=== PATIENT | female | born 1935 | race Caucasian/White ===

== ENCOUNTER 2016-12-08 07:19 | Day surgery (SDC) | payer OTHER ==
[2016-12-06 15:48] VITALS: BMI 31.4
[2016-12-08] MEDS ORDERED: PROPOFOL 20 ML ONE ×2 (07:21)
[2016-12-08] MEDS ORDERED: LIDOCAINE HCL/PF 2% SDV 5ML VIAL ONE (07:22)
[2016-12-08 10:27] VITALS: BP 132/81; PULSE 66
[2016-12-08 10:30] VITALS: TEMP 97.9
== END 2016-12-08 09:45 | disposition home or self-care (01) ==
LOC: FASU-ENDO 07:19
PROVIDERS: ATTEND Internal Medicine Gastroenterology
PROC: 0DJD8ZZ Inspection of Lower Intestinal Tract, Via Natural or Artificial Opening Endoscopic (ICD-10-PCS; principal; 2016-12-08 08:39)
DX: Z86.010 Personal history of colon polyps (principal); Z83.71 Family history of colonic polyps

== ENCOUNTER 2017-01-28 10:58 | Day surgery (SDC) | payer OTHER ==
[2017-01-27 10:43] VITALS: BMI 30.7
[~2017-01-28 10:58] MED LIST: ceFAZolin SODIUM 1 GM VIAL IVPB ONE
[2017-01-28] MEDS ORDERED: PROPOFOL 20 ML ONE ×2 (14:04)
[2017-01-28] MEDS ORDERED: MIDAZOLAM HCL 2 MG/2 ML SINGLE DOSE VIAL ONE (14:04)
[2017-01-28] MEDS ORDERED: ROCURONIUM BROMIDE 50 MG/5 ML VIAL ONE (14:04)
[2017-01-28] MEDS ORDERED: ceFAZolin SODIUM 1 GM VIAL ONE (14:06)
[2017-01-28] MEDS ORDERED: KETOROLAC TROMETHAMINE 30 MG/1 ML VIAL ONE (14:06)
[2017-01-28] MEDS ORDERED: DEXAMETHASONE SOD PHOSPHATE 4 MG/1 ML VIAL ONE (14:06)
[2017-01-28] MEDS ORDERED: ONDANSETRON 4 MG/2 ML VIAL IVPUSH PRN (14:15)
[2017-01-28] MEDS ORDERED: oxyCODONE HCL 5 MG TABLET PO PRN (14:15)
[2017-01-28] MEDS ORDERED: PROMETHAZINE HCL 25 MG/1 ML VIAL IVPUSH PRN (14:15)
[2017-01-28] MEDS ORDERED: ePHEDrine SULFATE 50 MG/1 ML AMPULE ONE (14:35)
[2017-01-28] MEDS ORDERED: ceFAZolin SODIUM 1 GM VIAL IVPB ONE (14:35)
[2017-01-28] MEDS ORDERED: NEOSTIGMINE METHYLSULFATE 0.5 MG/ML - 10 ML MDV ONE (15:13)
--- NOTE | 2017-01-28 15:30 | HP ---
History & Physical Update - History History: No Change - Physical Physical: No Change - Assessment Assessment: No Change - Plan Plan: No Change
--- NOTE | 2017-01-28 15:41 | OP ---
Operative Note - Note: Operative Date: 01/28/17 Pre-Operative Diagnosis: Incarcerated left inguinal hernia. Operation: Repair of incarcerated left inguinal hernia with plug and mesh. Findings: Large indirect defect of left groin. Surgeon: Talisha Chaudhari Anesthesia: General Specimens Removed: Hernial sac, and adipose tissue. Estimated Blood Loss (mls): 5 Operative Report Dictated: Yes
--- NOTE | 2017-01-28 15:49 | SURG ---
Surgery Uke Operator Note Uke Operator: Mary Pelayo PA-C Date of Service: 01/28/17 Diagnosis: Incarcerated left inguinal hernia. Procedure: Repair of incarcerated left inguinal hernia with plug and mesh. I was present for the entirety of the operative procedure. For further detail, please refer to operative report. Visit type - Case Type Case Type: Scheduled Admission - Emergency Emergency Visit: No - New patient This patient is new to me today: Yes Date on this admission: 01/28/17 - Critical Care Critical Care patient: No
[2017-01-28 17:13] VITALS: TEMP 98
[2017-01-28] MEDS ORDERED: ONDANSETRON 4 MG/2 ML VIAL ONE (17:45)
[2017-01-28 19:38] VITALS: BP 140/67; PULSE 65
--- NOTE | 2017-01-29 09:52 | OP ---
DATE OF OPERATION: 01/28/2017 PREOPERATIVE DIAGNOSIS: Incarcerated left inguinal hernia. POSTOPERATIVE DIAGNOSIS: Incarcerated left inguinal hernia. PROCEDURE PERFORMED: Repair of incarcerated left inguinal hernia with plug and mesh. SURGEON: Breezy Chaudhari MD TRAIN OPERATOR: PRAMOD Johnson ANESTHESIA: General anesthesia. INDICATIONS: This 81-year-old woman had a large swelling in the left groin, which was causing pain and was not reducible. The patient was brought in for repair of the hernia. Consent was obtained. The risks, benefits and complications were discussed with the patient. DESCRIPTION OF PROCEDURE: The patient was given 1 g of Ancef. General anesthesia was administered. The left groin was painted and draped. A skin incision was made in the left groin, which was deepened through the skin and subcutaneous tissue and Krish fascia. The external oblique aponeurosis was then incised along the direction of its fibers. There was a large hernia sac going down along the inguinal canal towards the labia. This was coming out lateral to the inferior epigastric vessels, suggesting to be an indirect hernia. The sac was then mobilized, along with the properitoneal fat, all the way towards the internal ring. The sac was then opened. There was no bowel content within the hernia at the time of the surgery. The sac was transfixed with 2-0 Vicryl sutures at the level of the internal ring. The rest of the sac beyond the suture was excised and sent to Pathology. There was also preperitoneal fat alongside the sac, which was excised and sent to Pathology. The sac was then from the posterior wall of the inguinal canal circumferentially and pushed back cephalad. A large plug was then inserted through the internal ring, and placed behind the transversus abdominis muscle and fashion. This was anchored with 2-0 Prolene sutures, which were passed through the internal oblique and transversus abdominis muscle, brought through the ring, caught the outer leaf of the mesh, and was reintroduced through the internal ring and brought out through the transversalis fascia, transversus abdominis muscle and internal oblique muscle. Two short sutures were obtained, one above and lateral to the internal ring and the other medial to the internal ring. The plug was then inserted through the internal ring and placed behind the abdominal wall. Large mesh was then interposed between the defect from the shelving edge of the inguinal ligament and internal oblique muscle. This was anchored at the level of the pubic tubercle with 2-0 Prolene sutures. The inferior leaf of the mesh was placed over the shelving edge of the inguinal ligament and anchored with the VersaTack tacking device. The 2-0 Prolene suture holding the plug behind the abdominal wall was brought through the mesh and was then anchored and a knot was fashioned, thus sandwiching the internal oblique muscle and transversus abdominis muscle and fascia between the plug and the mesh. The lateral Prolene suture was brought through both leaves of the mesh, which were placed over each, and a knot was fashioned. Thus the repair was adequately performed. The wound was irrigated. Hemostasis was satisfactory. The external oblique aponeurosis was approximated with continuous 3-0 Vicryl sutures. Krish fascia was approximated with buried interrupted 3-0 Vicryl sutures. The subcutaneous fat was approximated again with buried interrupted 3-0 Vicryl sutures. The skin was approximated with continuous 4-0 Monocryl sutures in a running subcuticular fashion. Marcaine 0.5% was injected into the wound. Dermabond was applied across the skin edges. The patient tolerated the procedure well. She was extubated and sent to the recovery room in satisfactory and stable condition. Renee [id number] MTDD
--- NOTE | 2017-02-02 13:31 | PATH ---
Surgical Pathology Report Patient Name: ARIS HAMMONDS [facility]. Rec. #: [id number] /Age/Gender: 1935 (Age: 81) / F Account: [id number] Location: [facility] SURGICAL Taken: 01/28/2017 Received: 02/01/2017 Reported: 02/02/2017 Physicians: Breezy Chaudhari M.D. Specimen(s) Received A: PREPERITONEAL FAT B: LEFT HERNIA SAC Clinical History Open incarcerated inguinal hernia Final Diagnosis A. PERITONEAL FAT: BENIGN FATTY TISSUE. B. HERNIA SAC, LEFT, INCARCERATED INGUINAL HERNIA REPAIR: BENIGN FIBROMEMBRANOUS AND FATTY TISSUE AND WITH HEMORRHAGE AND VASCULAR CONGESTION CONSISTENT WITH HERNIA SAC. Electronically Signed Bruno Rowell M.D. Gross Description A. Received in formalin labeled "peritoneal fat" is a 5.4 x 1.3 is 0.7 cm irregular portion of yellow, lobulated adipose tissue. The specimen is sectioned and entirely submitted in 2 cassettes. B. Received in formalin labeled "left hernia sac" is a 7.0 x 5.3 x 2.5 cm aggregate multiple irregular, unoriented portions of sevilla-julian fibromembranous tissue with attached yellow, lobulated adipose tissue. No masses are identified. Accounting Coordinator sections are submitted in one cassette. 02/01/201702/01/2017
== END 2017-01-28 19:10 | disposition home or self-care (01) ==
LOC: JASU-SURG 10:58
PROVIDERS: ATTEND Specialist
PROC: 0YU60JZ Supplement Left Inguinal Region with Synthetic Substitute, Open Approach (ICD-10-PCS; principal; 2017-01-28 12:30)
DX: K40.30 Unilateral inguinal hernia, with obstruction, without gangrene, not specified as recurrent (principal)
CPT/HCPCS: 88302-TC; 88304-TC; 94760